=== PATIENT | male | born 1960 | race Caucasian/White ===

== ENCOUNTER 2019-04-24 11:50 | Emergency (ER) | payer BC, OTHER ==
[2019-04-24] MEDS ORDERED: Ketorolac 60 MG/2 ML SDV IM ONE (12:12)
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
--- NOTE | 2019-04-24 13:49 | CR ---
INDICATION: Trauma. The patient fell 1 week ago. Back pain. TECHNIQUE: Three views of the lumbar spine. FINDINGS: Five lumbar vertebral bodies without acute fracture or acute malalignment. There is scattered degenerative spurring of the lower thoracic and mid to lower lumbar spine. Mild degenerative disc disease at L5. Vascular calcification within the abdominal aorta and proximal common iliac arteries. The included sacrum is unremarkable. IMPRESSION: No acute fracture or acute malalignment of the lumbar spine or upper sacrum. Dictated by Raul Gibbons MD @ Apr 24 2019 1:46PM Signed by Dr. Raul Gibbons @ Apr 24 2019 1:48PM
== END 2019-04-24 14:00 | disposition home or self-care (01) ==
LOC: MW.ED 11:50
DX: M54.5 Low back pain (principal); G89.29 Other chronic pain; I25.2 Old myocardial infarction; E11.9 Type 2 diabetes mellitus without complications; F17.210 Nicotine dependence, cigarettes, uncomplicated; Z95.5 Presence of coronary angioplasty implant and graft; Z90.49 Acquired absence of other specified parts of digestive tract; Z79.82 Long term (current) use of aspirin; Z79.84 Long term (current) use of oral hypoglycemic drugs; Z79.899 Other long term (current) drug therapy
CPT/HCPCS: 72100; 96372; 99283; J1885

== ENCOUNTER 2019-05-30 11:45 | Emergency (ER) | payer OTHER ==
[2019-05-30] MEDS ORDERED: Diphtheria,Pertussis(Acell),Tetanus Vaccine 0.5 ML Syringe IM ONE (12:02)
--- NOTE | 2019-05-30 12:06 | EDM.PDOC ---
ED HPI GENERAL MEDICAL PROBLEM - General Chief Complaint: Bite:Animal, Insect Stated Complaint: DOG BITE ON RIGHT LEG Time Seen by Provider: 05/30/19 12:02 Source of Information: Reports: Patient History Limitations: Reports: No Limitations - History of Present Illness INITIAL COMMENTS - FREE TEXT/NARRATIVE: HISTORY AND PHYSICAL: History of present illness: Patient is a 58-year-old male who presents to the emergency room with concerns of redness and swelling to a dog bite to the right lower extremity. States approximately one week ago he was at a family friend's house when the dog had bit his right wang. Dog's immunizations are up to date. He states he cleaned the area well and has continued to monitor it. Over the past several days he has had mild soft tissue swelling and redness around the site. Denies any drainage from the site. He states that the soft tissue swelling does go down when he keeps his leg elevated. He is unsure of his last tetanus update. Patient denies any fever, chills, headache, change in vision, syncope or near syncope. Denies any chest pain, back pain, shortness of breath or cough. Denies any GI or symptoms. Patient has been eating and drinking appropriately. Review of systems: As per history of present illness and below otherwise all systems reviewed and negative. Past medical history: As per history of present illness and as reviewed below otherwise noncontributory. Surgical history: As per history of present illness and as reviewed below otherwise noncontributory. Social history: See social history for further information Family history: As per history of present illness and as reviewed below otherwise noncontributory. Physical exam: General: Well-developed and well-nourished 58 her old male. Alert and oriented. Nontoxic appearing and in no acute distress. HEENT: Atraumatic, normocephalic, pupils equal and reactive bilaterally, negative for conjunctival pallor or scleral icterus, mucous membranes moist, trachea midline. No drooling or trismus noted. No meningeal signs. No hot potato voice noted. Lungs: Clear to auscultation, breath sounds equal bilaterally. Heart: S1S2, regular rate and rhythm without overt murmur Abdomen: Soft, nondistended, nontender. Skin: Healing abrasion noted to the right proximal wang with mild erythema surrounding the abrasion going down to the mid distal aspect. Redness is along the wang and does not wrap around into the calf muscle, non-circumferential. Otherwise skin is intact, warm, dry. No lesions or rashes noted. Extremities: See SKIN for details. He moves all extremities per self without difficulty or deficits, negative for cords or calf pain. Trace edema noted to the right lower extremity, tender to palpation. Strong pedal pulse. Neurovascular unremarkable. Neuro: Awake, alert, oriented. Cranial nerves II through XII unremarkable. Cerebellum unremarkable. Motor and sensory unremarkable throughout. Exam nonfocal. Notes: X-ray shows no acute findings. We'll place patient on antibiotics and give limited amount of pain medication. We discussed signs and symptoms that would prompt him to return to the emergency room. Supportive care measures were reviewed and discussed. Voices understanding and is agreeable to plan of care. Denies any further questions or concerns at this time. Diagnostics: Tib/Fib X-ray Therapeutics: T-dap Prescription: Augmentin Tramadol (#15) Impression: Animal Bite Cellulitis Plan: 1. Keep the wound clean and dry. Continue to monitor for signs of improvement. Take the antibiotic as prescribed. 2. Tylenol and/or ibuprofen as needed for pain management. Tramadol for moderate to severe pain. This medication may cause drowsiness a do not take it will driving her needing to be functioning outside of the house. 3. Follow-up with your primary care provider as we discussed. Return to the ED as needed and as discussed. Definitive disposition and diagnosis as appropriate pending reevaluation and review of above. Left Lower Leg Pain Score (Numeric/FACES): 7 - Related Data Allergies Allergy/AdvReac Type Severity Reaction Status Date / Time No Known Allergies Allergy Verified 05/30/19 11:53 Home Meds: Home Meds Aspirin [[place] Aspirin EC] 81 mg PO DAILY 04/24/19 [History] [place] 90 mg PO DAILY 04/24/19 [History] Cyclobenzaprine [Flexeril] 10 mg PO TID PRN #15 tab 04/24/19 [Rx] Diclofenac Sodium [Voltaren] 75 mg PO BIDMEALS PRN #15 tab.cr 04/24/19 [Rx] Lisinopril 10 mg PO DAILY 04/24/19 [History] Metoprolol Tartrate 25 mg PO DAILY 04/24/19 [History] Varenicline Tartrate [Chantix] 1 mg PO DAILY 04/24/19 [History] amLODIPine [Norvasc] 5 mg PO DAILY 04/24/19 [History] atorvaSTATin Calcium [Atorvastatin Calcium] 80 mg PO DAILY 04/24/19 [History] metFORMIN HCl [Metformin HCl] 1,000 mg PO BID 04/24/19 [History] Amoxicillin/Clavulanate K [Augmentin 875-125 MG] 1 tab PO BID 10 Days #20 tablet 05/30/19 [Rx] traMADol [Ultram] 50 mg PO Q4H PRN #15 tab 05/30/19 [Rx] Past Medical History HEENT History: Reports: Impaired Vision Cardiovascular History: Reports: [place] Gastrointestinal History: Reports: None Endocrine/Metabolic History: Reports: Diabetes, Type II - Infectious Disease History Infectious Disease History: Reports: None - Past Surgical History HEENT Surgical History: Reports: None Cardiovascular Surgical History: Reports: Coronary Artery Stent GI Surgical History: Reports: Appendectomy, Hernia, Abdominal Social & Family History - Family History Family Medical History: Noncontributory - Tobacco Use Smoking Status *Q: Current Every Day Smoker Years of Tobacco use: 42 Packs/Tins Daily: 0.5 - Caffeine Use Caffeine Use: Reports: Coffee - Recreational Drug Use Recreational Drug Use: No ED ROS GENERAL - Review of Systems Review Of Systems: ROS reveals no pertinent complaints other than HPI. ED EXAM, ANIMAL BITE - Physical Exam Exam: See Below (See dictation) Course - Vital Signs Last Recorded V/S: Last Vital Signs Temp 96.7 F 05/30/19 11:54 Pulse 70 05/30/19 11:54 Resp 18 05/30/19 11:54 BP 138/88 05/30/19 11:54 Pulse Ox 94 L 05/30/19 11:54 - Orders/Labs/Meds Orders: Active Orders 24 hr Category Date Time Status Vaccines to be Administered [RC] PER UNIT ROUTINE Care 05/30/19 12:02 Active Tibia Fibula Lt [CR] Stat Exams 05/30/19 12:02 Ordered Meds: Medications Discontinued Medications Generic Name Dose Route Start Last Admin Trade Name Freq PRN Reason Stop Dose Admin Diphtheria/Tetanus/Acell Pertussis 0.5 ml 05/30/19 12:02 05/30/19 12:12 Adacel IM 05/30/19 12:03 0.5 ml .ONCE ONE Administration Departure - Departure Time of Disposition: 12:28 Disposition: Home, Self-Care 01 Clinical Impression: Animal bite Cellulitis Qualifiers: Site of cellulitis: extremity Site of cellulitis of extremity: lower extremity Laterality: right Qualified Code(s): L03.115 - Cellulitis of right lower limb - Discharge Information Prescriptions: Amoxicillin/Clavulanate K [Augmentin 875-125 MG] 1 tab PO BID 10 Days #20 tablet traMADol [Ultram] 50 mg PO Q4H PRN #15 tab PRN Reason: Pain Instructions: Animal Bite, Adult, [id number], Cellulitis, Adult, [id number] Referrals: PCP,None [Primary Care Provider] - Forms: ED Department Discharge Additional Instructions: The following information is given to patients seen in the emergency department who are being discharged to home. This information is to outline your options for follow-up care. We provide all patients seen in our emergency department with a follow-up referral. The need for follow-up, as well as the timing and circumstances, are variable depending upon the specifics of your emergency department visit. If you don't have a primary care physician on staff, we will provide you with a referral. We always advise you to contact your personal physician following an emergency department visit to inform them of the circumstance of the visit and for follow-up with them and/or the need for any referrals to a consulting specialist. The emergency department will also refer you to a specialist when appropriate. This referral assures that you have the opportunity for follow-up care with a specialist. All of these measure are taken in an effort to provide you with optimal care, which includes your follow-up. Under all circumstances we always encourage you to contact your private physician who remains a resource for coordinating your care. When calling for follow-up care, please make the office aware that this follow-up is from your recent emergency room visit. If for any reason you are refused follow-up, please contact the [facility] Emergency Department at and asked to speak to the emergency department charge nurse. [facility] [address] [place] [id number] [facility] [address] [place] [address] 1. Keep the wound clean and dry. Continue to monitor for signs of improvement. Take the antibiotic as prescribed. If symptoms do not improve please return to the emergency room as we discussed, you may need IV antibiotics. 2. Tylenol and/or ibuprofen as needed for pain management. Tramadol for moderate to severe pain. This medication may cause drowsiness a do not take it will driving her needing to be functioning outside of the house. 3. Follow-up with your primary care provider as we discussed. Return to the ED as needed and as discussed. - My Orders Last 24 Hours: My Active Orders 05/30/19 12:02 Vaccines to be Administered [RC] PER UNIT ROUTINE Tibia Fibula Lt [CR] Stat - Assessment/Plan Last 24 Hours: My Active Orders 05/30/19 12:02 Vaccines to be Administered [RC] PER UNIT ROUTINE Tibia Fibula Lt [CR] Stat
--- NOTE | 2019-05-30 13:25 | CR ---
INDICATION: Pain. Dog bite. FINDINGS: Four views of the left tibia-fibula show no evidence of acute fracture or dislocation. No other bony or soft tissue abnormalities identified. Dictated by Johnathan Cook MD @ 05/30/2019 1:24:20 PM Dictated by: Johnathan Cook MD @ 05/30/2019 13:24:39 (Electronically Signed)
== END 2019-05-30 13:06 | disposition home or self-care (01) ==
LOC: MW.ED 11:45
DX: S81.851D Open bite, right lower leg, subsequent encounter (principal); L03.115 Cellulitis of right lower limb; F17.210 Nicotine dependence, cigarettes, uncomplicated; Z23 Encounter for immunization; Z79.82 Long term (current) use of aspirin; Z79.899 Other long term (current) drug therapy; W54.0XXD Bitten by dog, subsequent encounter
CPT/HCPCS: 73590-26-LT; 73590-LT; 90471; 90715; 99283; 99283-25

== ENCOUNTER 2019-06-05 06:21 | Emergency (ER) | payer OTHER ==
--- NOTE | 2019-06-05 06:40 | EDM.PDOC ---
ED HPI GENERAL MEDICAL PROBLEM - General Chief Complaint: Bite:Animal, Insect Stated Complaint: DOG BITE ON LEFT LEG Time Seen by Provider: 06/05/19 06:36 - History of Present Illness INITIAL COMMENTS - FREE TEXT/NARRATIVE: HISTORY AND PHYSICAL: History of present illness: Patient 58-year-old white male with history of diabetes who presents for wound check from a dog bite sustained in the recent past he is currently on Augmentin he's had no fever no chills the erythema of the wound to his left lower extremity was demarcated and is not expanded in any way shape or form is no increased pain or other concern other than some ecchymosis that he noted without pain in his ankle region. Review of systems: As per history of present illness and below otherwise all systems reviewed and negative. Past medical history: As per history of present illness and as reviewed below otherwise noncontributory. Surgical history: As per history of present illness and as reviewed below otherwise noncontributory. Social history: No reported history of drug or alcohol abuse. Family history: As per history of present illness and as reviewed below otherwise noncontributory. Physical exam: HEENT: Atraumatic, normocephalic, pupils reactive, negative for conjunctival pallor or scleral icterus, mucous membranes moist, throat clear, neck supple, nontender, trachea midline. Lungs: Clear to auscultation, breath sounds equal bilaterally, chest nontender. Heart: S1S2, regular, negative for clicks, rubs, or JVD. Abdomen: Soft, nondistended, nontender. Negative for masses or hepatosplenomegaly. Negative for costovertebral tenderness. Pelvis: Stable nontender. Genitourinary: Deferred. Rectal: Deferred. Extremities: Patient has a healing wound noted to the anterior aspect of his left knee with minimal erythema there is no fluctuance no significant warmth and again the demarcation of the erythema has not expanded beyond. She must neurovascular exams unremarkable her some small ecchymosis noted and swelling of his left ankle consistent with dependent edema secondary to his recent injury. Neuro: Awake, alert, oriented. Cranial nerves II through XII unremarkable. Cerebellum unremarkable. Motor and sensory unremarkable throughout. Exam nonfocal. Diagnostics: None Therapeutics: None Impression: #1 wound check #2 history of dog bite left lower extremity #3 history of diabetes Definitive disposition and diagnosis as appropriate pending reevaluation and review of above. left leg Pain Score (Numeric/FACES): 4 - Related Data Allergies Allergy/AdvReac Type Severity Reaction Status Date / Time No Known Allergies Allergy Verified 06/05/19 06:30 Home Meds: Home Meds Aspirin [[place] Aspirin EC] 81 mg PO DAILY 04/24/19 [History] [place] 90 mg PO DAILY 04/24/19 [History] Cyclobenzaprine [Flexeril] 10 mg PO TID PRN #15 tab 04/24/19 [Rx] Diclofenac Sodium [Voltaren] 75 mg PO BIDMEALS PRN #15 tab.cr 04/24/19 [Rx] Lisinopril 10 mg PO DAILY 04/24/19 [History] Metoprolol Tartrate 25 mg PO DAILY 04/24/19 [History] Varenicline Tartrate [Chantix] 1 mg PO DAILY 04/24/19 [History] amLODIPine [Norvasc] 5 mg PO DAILY 04/24/19 [History] atorvaSTATin Calcium [Atorvastatin Calcium] 80 mg PO DAILY 04/24/19 [History] metFORMIN HCl [Metformin HCl] 1,000 mg PO BID 04/24/19 [History] Amoxicillin/Clavulanate K [Augmentin 875-125 MG] 1 tab PO BID 10 Days #20 tablet 05/30/19 [Rx] traMADol [Ultram] 50 mg PO Q4H PRN #15 tab 05/30/19 [Rx] Past Medical History HEENT History: Reports: Impaired Vision Cardiovascular History: Reports: Hypertension, [place] Gastrointestinal History: Reports: None Endocrine/Metabolic History: Reports: Diabetes, Type II - Infectious Disease History Infectious Disease History: Reports: None - Past Surgical History HEENT Surgical History: Reports: None Cardiovascular Surgical History: Reports: Coronary Artery Stent GI Surgical History: Reports: Appendectomy, Hernia, Abdominal Social & Family History - Family History Family Medical History: Noncontributory - Tobacco Use Smoking Status *Q: Current Every Day Smoker Years of Tobacco use: 15 Packs/Tins Daily: 1 - Caffeine Use Caffeine Use: Reports: Coffee - Recreational Drug Use Recreational Drug Use: No ED ROS GENERAL - Review of Systems Review Of Systems: ROS reveals no pertinent complaints other than HPI. ED EXAM, ANIMAL BITE - Physical Exam Exam: See Below (See dictation) Course - Vital Signs Last Recorded V/S: Last Vital Signs Temp 35.7 C 06/05/19 06:21 Pulse 69 06/05/19 06:21 Resp 18 06/05/19 06:21 BP 144/85 H 06/05/19 06:21 Pulse Ox 96 06/05/19 06:21 Departure - Departure Time of Disposition: 06:39 Disposition: Home, Self-Care 01 Condition: Good Clinical Impression: Visit for wound check - Discharge Information Referrals: PCP,None [Primary Care Provider] - Additional Instructions: The following information is given to patients seen in the emergency department who are being discharged to home. This information is to outline your options for follow-up care. We provide all patients seen in our emergency department with a follow-up referral. The need for follow-up, as well as the timing and circumstances, are variable depending upon the specifics of your emergency department visit. If you don't have a primary care physician on staff, we will provide you with a referral. We always advise you to contact your personal physician following an emergency department visit to inform them of the circumstance of the visit and for follow-up with them and/or the need for any referrals to a consulting specialist. The emergency department will also refer you to a specialist when appropriate. This referral assures that you have the opportunity for followup care with a specialist. All of these measure are taken in an effort to provide you with optimal care, which includes your followup. Under all circumstances we always encourage you to contact your private physician who remains a resource for coordinating your care. When calling for followup care, please make the office aware that this follow-up is from your recent emergency room visit. If for any reason you are refused follow-up, please contact the [facility] emergency department at and asked to speak to the emergency department charge nurse. Continue Augmentin as prescribed continue home medications as prescribed follow- up private medical doctor for reevaluation as needed as discussed and return as needed as discussed
== END 2019-06-05 07:05 | disposition home or self-care (01) ==
LOC: MW.ED 06:21
DX: S81.052D Open bite, left knee, subsequent encounter (principal); E11.9 Type 2 diabetes mellitus without complications; I10 Essential (primary) hypertension; I25.2 Old myocardial infarction; F17.210 Nicotine dependence, cigarettes, uncomplicated; Z79.82 Long term (current) use of aspirin; Z79.899 Other long term (current) drug therapy; Z79.84 Long term (current) use of oral hypoglycemic drugs; W54.0XXD Bitten by dog, subsequent encounter
CPT/HCPCS: 99282; 99283